=== PATIENT | female | born 1980 | race Caucasian/White ===

== ENCOUNTER 2017-07-10 19:36 | Emergency (ER) | payer OTHER ==
[~2017-07-10] VITALS: Ht 177.8 cm; Wt 103.2 kg
[~2017-07-10 19:36] MED LIST: OXYC-176 PO
[2017-07-10 20:01] VITALS: BP 119/75; PULSE 69; RESP 20; O2SAT 95
--- NOTE | 2017-07-10 20:58 | ED.REPORT ---
HPI-Headache Date of Service Jul 10, 2017 ED Provider: Mrs. Avalos is an otherwise healthy 36-year-old female presents to the ED with a headache. Onset of headache started 4 days ago. She notes that she has no history of prior headaches. She woke up at her usual time and noted that she started having headache. Take is described as sharp and stabbing, throbbing radiating up from the back of her head and behind her eyes. Headache is worse with bright lights, loud noises, getting up and moving. Associated symptoms of nausea and dizziness. She has tried Excedrin, Aleve, ibuprofen, and Tylenol at home with no relief. She was seen at urgent care today where she received a headache cocktail of Toradol and Benadryl IM with Zofran for nausea. Patient noted that this did relieve her symptoms for about 7 hours. Headache returned and is rated at a 10 out of 10 and so she decided to come to the ED. Patient denies any trauma, weakness, fevers or chills, chest pain, shortness of breath, cough, or URI like symptoms. Nursing Notes Stated Complaint: HEADACHE Chief Complaint: Headache Allergies: Coded Allergies: No Known Allergies (Verified , 07/10/17) Scheduled PRN Oxycodone/APAP-Expunged Drug, Do Not Renew! (Percocet 5/325-Expunged Drug, Do Not Renew!) 1 Each Tablet 1-2 TAB PO Q4 PRN PRN General Time Seen by MD: 20:05 Chief Complaint Headache Hx Obtained From: Patient Arrived By: Walk-in Sudden in Onset?: Yes Onset Occurred: 13 - 16 hours ago Symptom Duration: Constant Location: : Generalized: Temporal bilateral Quality: Sharp Severity: Current: Pain level 7 out of 10 Severity: Maximum: Pain level 10 out of 10 Associated with: Reports: Nausea, Photophobia, Denies: Aura visual, Difficulty speaking, Visual disturbance Pertinent Negative: Pt denies other symptoms Risk-Headache )( SAH Risk Stratification No Anticoagulation therapy, No Hypertension RF Statements: Risk factors reviewed Past Medical History Past Medical History Recurrent ear infections with ET tubes Past Surgical History Reports: Appendectomy, Cholecystectomy Family History Adopted Smoking History Never Smoker Social History Alcohol Use: "Social" Drug Use: Denies drug use Ambulatory Status Independent Review of Systems Basic Review of Systems Respiratory: No shortness of breath, No cough, No wheeze Cardiovascular: No chest pain, No dyspnea on exertion, No orthopnea, No parox noct dyspnea, No palpitations : No dysuria, No frequency Hematologic: No bleeding, No bruising Endocrine: No cold intolerance, No heat intolerance, No weight gain, No weight loss Constitutional: Denies: Chills, Fever Eyes: Reports: Photophobia Ears / Nose / Throat: Denies: Earache bilateral, Nasal congestion, Sore throat Psychiatric: Denies: Confusion Complete sys rev & neg: except as marked. Physical Exam Initial Vital Signs Vital Signs (First) Date Time Temp Pulse Resp B/P Pulse Ox O2 Delivery O2 Flow Rate FiO2 07/10/17 20:01 37.1 69 20 119/75 95 Room Air Initial VS: Reviewed ENT: Mucous membranes moist, Conjunctiva normal, No scleral icterus Respiratory: Breath sounds normal, Clear to auscultation, No respiratory distress Cardiovascular: Regular rate & rhythm, Heart sounds normal, Intact distal pulses Skin: Warm, Dry, No cyanosis Head / Eyes: Normocephalic, PERRL, EOMI, No nystagmus, Conjunctiva NL, Temporal arteries NL Neck: Supple, No meningismus, Full range of motion, No swelling, Non-tender, No masses ENT: No sinus tenderness Left Ear / Mastoid: Positive: Fluid behind TM clear Interpretation & Diagnostics Lab Results Interpretation Result Diagram: 07/10/17205407/10/172054 Test 07/10/17 20:55 07/10/17 21:50 White Blood Count 7.5th/mm3 (3.8-10.1) Red Blood Count 5.02mil/mm3 (3.90-5.20) Hemoglobin 14.7g/dL (12.0-15.6) Hematocrit 43.9% (35.0-46.0) Mean Corpuscular Volume 87.5fL (81-100) Mean Corpuscular Hemoglobin 29.3pg (27.0-35.0) Mean Corpuscular Hemoglobin Concent 33.5% (32.0-37.0) Red Cell Distribution Width 12.8% (12.3-15.4) Platelet Count 240bil/L (150-400) Neutrophils (%) (Auto) 83.4% (40-74) Lymphocytes (%) (Auto) 10.3% (14-46) Monocytes (%) (Auto) 5.1% (4-12) Eosinophils (%) (Auto) 0.7% (0-5) Basophils (%) (Auto) 0.1% (0-3) Hold Purple Top Tube Received (Received) Hold Blue Top Tube Received (Received) Sodium Level 137mEq/L (134-144) Potassium Level 4.3mEq/L (3.5-5.2) Chloride Level 100mEq/L (97-108) Carbon Dioxide Level 20mmol/L (18-29) Blood Urea Nitrogen 11mg/dL (6-20) Creatinine 0.72mg/dL (0.57-1.00) Estimat Glomerular Filtration Rate 132mL/min (>59) Glucose Level 127mg/dL (60-99) Calcium Level 9.5mg/dL (8.5-10.1) Total Bilirubin 0.3mg/dL (0.0-1.2) Aspartate Amino Transf (AST/SGOT) 21U/L (0-50) Alanine Aminotransferase (ALT/SGPT) 26U/L (0-32) Alkaline Phosphatase 48U/L (25-150) Total Protein 7.6g/dL (6.4-8.4) Albumin 4.5g/dL (3.4-5.0) Human Chorionic Gonadotropin, Qual Negative (Negative) Hold Delia Top Tube Received (Received) Hold Vazquez Top Tube Received (Received) Hold Urine Received (Received) CT Head Interpretation No acute hemorrhage No mass Normal head CT Study: Head CT no contrast Interpretation / Wet Read by: Wet read ED physician Re-Eval/Medical Decision Med Decision/Clinical Course Mrs. Avalos is a 36-year-old female who presents to the ED with new onset headache. She is currently afebrile at 37.1C. Her neck is supple. She has full passive range of motion without pain. Meningitis is unlikely. No previous history of headache and sudden onset for which she gives a rating of 10 out of 10 pain; I ordered a head CT to rule out subarachnoid hemorrhage. Patient noted that she felt better after a headache cocktail of Haldol, Benadryl , Toradol, lorazepam, dexamethasone, and a liter of fluids. Discharge & Departure Impression: Primary Impression: Headache Headache type: unspecified Headache chronicity pattern: acute headache Intractability: not intractable Qualified Code: R51 - Headache Disposition: Home Discharge Condition All VS Reviewed: Yes Condition: Stable Patient Instructions: Acute Headache (ED) Additional Instructions: We worked up your headache thoroughly with a CT scan today revealed that you did not have subarachnoid hemorrhage that is causing her headache. As we discussed if you develop any fevers or chills then you need to come back to get a lumbar puncture to rule out meningitis. Rest tonight do not drive. Follow- up with your primary care provider. We are also referring you to neurology for your acute headache. Referrals: Noelle Monteiro (PCP) Manju Pepe MD Attending Statement I personally performed a history and physical examination. I concur with the note as written above. No signs of meningitis. History is not consistent with subarachnoid hemorrhage. She has never had headaches like this or mass needed to be evaluated for. She has normal head CT just treated with a migraine cocktail. I explained to her that a lumbar puncture was necessary/recommended to completely rule out meningitis. I bring this up because she did have a fever couple days ago. This would also rule out subarachnoid hemorrhage with 100% certainty. She declined this test. Evidently she had an epidural that was miserable for her. She does not wish to go through that again. She is sober and lucid. I think she is low risk for either of these disease however I did tell her that if she develops a fever or stiff neck she to come right back will perform the procedure. I think this is a good middle ground meat upon. She felt better after headache cocktail she is discharged in stable condition. Judy Schaffer DO Jul 10, 2017 20:58 Everardo Velez DO Jul 11, 2017 12:39
[2017-07-10] MEDS ORDERED: Dexamethasone Inj 10 MG in 0.9% Sodium Chloride-Pha MIX 50 ML IV ONE (21:45)
[2017-07-10] MEDS ORDERED: 0.9% Sodium Chloride 1,000 ML IV ONE (21:45)
[2017-07-10] MEDS ORDERED: Haloperidol 5 mg/mL Inj IVPUSH ONE (21:45)
[2017-07-10 22:00] LABS: BASOPHILS % (AUTO) 0.1 % (0-3); EOSINOPHILS % (AUTO) 0.7 % (0-5); MONOCYTES % (AUTO) 5.1 % (4-12); Mean Corpuscular Hemoglobin 29.3 pg (27.0-35.0); Mean Corpuscular Volume 87.5 fL (81-100); NEUTROPHILS % (AUTO) 83.4 % (40-74); Platelet Count 240 bil/L (150-400)
[2017-07-11 00:23] VITALS: BP 122/73; PULSE 72; RESP 16; O2SAT 98
--- NOTE | 2017-07-11 08:40 | DRSVH ---
PROCEDURE: CT BRAIN WITHOUT CONTRAST ([id number]) INDICATIONS: severe headache TECHNIQUE: Noncontrast 4.5 mm thick angled axial sections acquired from the foramen magnum to the vertex, with c oronal reformats. COMPARISON: None. FINDINGS: Image quality: Excellent. CSF spaces: Basal cisterns are patent. No extra-axial fluid collections. Ventricles are normal in size and shape. Brain: No midline shift. No intracranial masses or hemorrhage. Joel-white matter interface is norm al. Skull and face: Calvarium and visualized facial bones are intact, without suspicious lesions. Sinuses: Visualized sinuses and mastoids are clear. IMPRESSION: 1. No acute intracranial process. Dictated by: Roxy Carvalho M.D. on 07/11/2017 at 8:37 Approved by: Roxy Carvalho M.D. on 07/11/2017 at 8:38
== END 2017-07-11 00:29 | disposition home or self-care (01) ==
LOC: SED 19:36
DX: R51 Headache (principal)
CPT/HCPCS: 36415; 70450; 80053; 81025; 84703; 85025; 96361; 96374; 96375; 99285; J1100; J1200; J1630; J1885; J2060; J7030